=== PATIENT | female | born 1985 | race Caucasian/White ===

== ENCOUNTER 2017-04-23 12:03 | Emergency (ER) | payer OTHER ==
[~2017-04-23] VITALS: Ht 170.2 cm; Wt 98.9 kg
[~2017-04-23 12:03] MED LIST: ACETAMINOPHEN-1 EAC1 PO; AMOXICILLIN 50500 M1 PO; AMOXICILLIN 50500 MG PO; AMOXICILLIN500 M1 PO; AMOXICILLIN875 MG PO; ANTIPYRINE-BENZ10 ML OT; AURALGAN EAR DR14 ML OTIC; CIPRODEX OTIC7.5 ML OTIC; FLOMAX0.4 MG PO; HYDROCODON-ACE1 EAC7 PO; HYDROCODON-ACE1 EACH PO; HYDROCODONE-AP1 EAC6 PO; IBUPROFEN 800800 M1 PO; LIDOCAINE VISC100 M1 SWISH&SPIT; NOHOMEMEDICATIONS; NORCO 5-325 TA1 EACH PO; PENICILLIN V P500 MG PO; PENICILLIN VK250 MG PO; PENICILLIN VK500 MG PO; TRAMADOL 50 MG50 MG PO; VICODIN 5-5001 EACH PO; ZOFRAN ODT4 MG PO
[2017-04-23] MEDS ORDERED: PENICILLIN VK500 MG PO (12:28)
[2017-04-23] MEDS ORDERED: NORCO 5-325 TA1 EACH PO (12:28)
[2017-04-23 12:36] VITALS: BP 171/117
== END 2017-04-23 12:37 | disposition home or self-care (01) ==
LOC: M.ERS 12:03
DX: K04.01 Reversible pulpitis (principal); F17.210 Nicotine dependence, cigarettes, uncomplicated

== ENCOUNTER 2017-07-27 12:50 | Emergency (ER) | payer OTHER ==
[~2017-07-27] VITALS: Ht 170.2 cm; Wt 95.3 kg
[2017-07-27 13:00] VITALS: BP 148/92
[2017-07-27] MEDS ORDERED: PENICILLIN V P500 MG PO (13:18)
[2017-07-27] MEDS ORDERED: ULTRAM 50MG TAB50 MG PO (13:18)
== END 2017-07-27 13:22 | disposition still patient (30) ==
LOC: M.ERS 12:50
DX: K03.81 Cracked tooth (principal); F17.210 Nicotine dependence, cigarettes, uncomplicated

== ENCOUNTER 2017-09-21 12:13 | Emergency (ER) | payer OTHER ==
[~2017-09-21] VITALS: Ht 167.6 cm; Wt 90.7 kg
[~2017-09-21 12:13] MED LIST changes: +ULTRAM 50MG TAB50 MG PO
[2017-09-21 12:19] VITALS: BP 155/100
[2017-09-21] MEDS ORDERED: PENICILLIN V P500 MG PO (12:26)
[2017-09-21] MEDS ORDERED: NORCO 5-325 TA1 EACH PO (12:26)
== END 2017-09-21 12:39 | disposition home or self-care (01) ==
LOC: M.ERS 12:13
DX: K02.9 Dental caries, unspecified (principal); F17.210 Nicotine dependence, cigarettes, uncomplicated

== ENCOUNTER 2019-09-24 21:03 | Emergency (ER) | payer OTHER ==
[~2019-09-24] VITALS: Ht 175.3 cm; Wt 113.4 kg
[2019-09-24 21:58] LABS: URINE BILIRUBIN NEGATIVE (Negative); URINE BLOOD 3+ (Negative); URINE CLARITY CLEAR; URINE COLOR YELLOW; URINE GLUCOSE-RANDOM NEGATIVE (Negative); URINE KETONES NEGATIVE (Negative); URINE LEUKOCYTES-REFLEX NEGATIVE (Negative); URINE NITRITE-REFLEX NEGATIVE (Negative); URINE PROTEIN NEGATIVE (Negative); URINE UROBILINOGEN 0.2 E.U./dl (0.2-1.0)
[2019-09-24 22:02] LABS: ABSOLUTE BASOPHILS 0.1 thou/uL (0.0-0.2); ABSOLUTE EOSINOPHILS 0.2 thou/uL (0.0-0.7); ABSOLUTE LYMPHOCYTES 1.1 thou/uL (0.8-5.3); ABSOLUTE MONOCYTES 0.3 thou/uL (0.0-1.2); BASOPHILS 0.7 %; EOSINOPHILS 2.2 %; HEMATOCRIT 39.4 % (37.0-47.0); HEMOGLOBIN 13.4 gm/dL (12.0-15.0); LYMPHOCYTES 14.3 %; MCH 26.8 pg (26.0-34.0); MCHC 34.1 g/dL (28.0-37.0); MCV 78.5 fL (80.0-100.0); MONOCYTES 4.1 %; MPV 8.8 fl. (7.2-11.1); NUCLEATED RBCS 0 /100WBC; PLATELET COUNT* 234 thou/uL (150-400); POLYS 78.7 %; RBC 5.01 mil/uL (4.20-5.00); RDW-CV 14.3 % (10.5-14.5); WBC 7.7 thou/uL (4.0-11.0)
[2019-09-24 22:09] LABS: BACTERIA-REFLEX 1-9 Few /HPF (None Seen); CASTS None Seen /LPF (None Seen); CRYSTALS None Seen /LPF (None Seen); SQUAMOUS 0-3 Few /LPF (0-3); URINE RBC >20 Many /HPF (0-2); URINE WBC-REFLEX 0-5 Rare /HPF (0-5)
[2019-09-24 22:10] LABS: CALCIUM 9.1 mg/dL (8.5-10.1); CREATININE 0.9 mg/dL (0.6-1.3)
[2019-09-24 22:12] LABS: AMP/METHAMP Negative (Negative); BARBITURATES Negative (Negative); BENZODIAZEPINES Negative (Negative); COCAINE Negative (Negative); METHADONE Negative (Negative); OPIATES Negative (Negative); PCP Negative (Negative); THC POSITIVE (Negative)
[2019-09-24 22:15] LABS: ALBUMIN 3.7 g/dL (3.4-5.0); TOTAL BILIRUBIN 0.3 mg/dL (<0.1-1.0); TOTAL PROTEIN 7.7 g/dL (6.4-8.2)
[2019-09-25] MEDS ORDERED: HYDROCODON-ACE1 EAC7 PO (00:25)
[2019-09-25] MEDS ORDERED: FLOMAX0.4 MG PO (00:25)
[2019-09-25] MEDS ORDERED: ZOFRAN ODT4 MG PO (00:25)
[2019-09-25 00:40] VITALS: BP 140/70
== END 2019-09-25 00:41 | disposition home or self-care (01) ==
LOC: M.ERS 21:03
PROVIDERS: Personal Emergency Response Attendant
DX: N20.0 Calculus of kidney (principal); F17.210 Nicotine dependence, cigarettes, uncomplicated; Z79.899 Other long term (current) drug therapy